=== PATIENT | female | born 2000 | race Caucasian/White ===

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

== ENCOUNTER 2020-02-14 18:26 | Emergency (ER) | payer SELFPAY ==
[2020-02-15 05:31] LABS: SARS-CoV-2 MS2 Positive; SARS-CoV-2 N Gene Negative; SARS-CoV-2 S Gene Negative; SARS-CoV-2 by NAA Not Detected (NotDetected); SARS-CoV-2 orf1ab Negative
== END 2020-02-14 18:52 | disposition home or self-care (01) ==
LOC: ERS 18:26
DX: R50.9 Fever, unspecified (principal); R52 Pain, unspecified; Z20.828 Contact with and (suspected) exposure to other viral communicable diseases; F41.9 Anxiety disorder, unspecified; F17.210 Nicotine dependence, cigarettes, uncomplicated
CPT/HCPCS: 87635; 99283; U0003

== ENCOUNTER 2020-06-20 17:48 | Emergency (ER) | payer OTHER, MEDICAID ==
[2020-06-20 18:25] LABS: #Basophils 0.1 thou/uL (0.0-0.2); #Eosinphils 0.1 thou/uL (0.0-0.7); #Lymphocytes 2.5 thou/uL (1.20-3.40); #Monocytes 0.6 thou/uL (0.11-0.59); #Neutrophils 6.5 thou/uL (1.40-6.50); %Basophils 0.7 % (0.0-1.0); %Eosinophils 0.7 % (0.0-10.0); %Lymphocytes 25.7 % (28.0-48.0); %Monocytes 5.8 % (0.0-4.0); %Neutrophils 67.1 % (31.0-61.0); Hemoglobin 12.8 g/dL (12.0-16.0); Mean Corpuscular HGB CONC 34.6 g/dL (32.0-36.0); Mean Platelet Volume 8.6 fL (7.4-10.4); Platelet Count 226 thou/uL (130-400); RBC Distribution Width 10.4 % (11.5-14.5); Red Blood Cell (RBC) Count 3.55 mill/uL (4.00-5.20); White Blood Cell (WBC) Count 9.6 thou/uL (4.8-10.8)
[2020-06-20 18:44] LABS: ALT (SGPT) 11 U/L (8-55); AST (SGOT) 13 U/L (5-34); Albumin 4.4 g/dL (3.5-5.0); Alkaline Phosphatase 49 U/L (40-100); Anion Gap 12 mmol/L (10-20); BUN (Urea Nitrogen) 13 mg/dL (7.0-18.7); Bilirubin, Total 0.4 mg/dL (0.2-1.2); Calc. Creatinine Clearance 0 mL/min (70-130); Calcium 8.9 mg/dL (7.8-10.44); Carbon Dioxide 23 mmol/L (22-29); Chloride 107 mmol/L (98-107); Globulin 3.1 g/dL (2.4-3.5); Glucose 98 mg/dL (70-105); Lipase 11 U/L (8-78); Potassium 3.4 mmol/L (3.5-5.1); Protein, Total 7.5 g/dL (6.0-8.3); Sodium 139 mmol/L (136-145)
[2020-06-20 19:43] LABS: Pregnancy Test - Urine (BHCG) Negative (Negative)
[2020-06-20 19:44] LABS: Bilirubin Negative (Negative); Blood, Urine 1+ (Negative); Clarity Clear (Clear); Glucose, Urine (Dipstick) Normal (Negative); Ketone, Urine Negative (Negative); Leukocyte 500 Leu/uL (Negative); Nitrite Negative (Negative); Protein, Urine (Dipstick) 10 mg/dL (Neg-Trace); Specific Gravity, Urine 1.028 (1.002-1.036); Urobilinogen Normal mg/dL (Less than 2)
[2020-06-20 19:45] LABS: Bacteria/HPF None Seen HPF (None Seen); WBC/HPF 21-50 HPF (0-3)
[2020-06-20 19:46] LABS: Pregu Control Background? CLEAR/WHITE (CLR/WHITE); Pregu Control Bar Appear? YES (CONTROL BAR); Specific Gravity 1.028 (1.002-1.036)
== END 2020-06-20 22:35 | disposition home or self-care (01) ==
LOC: ERS 17:48
DX: N39.0 Urinary tract infection, site not specified (principal)
CPT/HCPCS: 36415; 71045; 80053; 81003; 81015; 81025; 83690; 85025

== ENCOUNTER 2020-10-24 13:47 | Emergency (ER) | payer MEDICAID ==
[2020-10-24] MEDS ORDERED: Ondansetron ODT 4 MG TAB ONE (17:28)
== END 2020-10-24 17:42 | disposition home or self-care (01) ==
LOC: ERS 13:47
DX: R11.0 Nausea (principal); R10.9 Unspecified abdominal pain; R07.89 Other chest pain; R06.02 Shortness of breath; T37.3X5A Adverse effect of other antiprotozoal drugs, initial encounter
CPT/HCPCS: 71045; 93005; Q0162

== ENCOUNTER 2020-11-05 19:57 | Emergency (ER) | payer MEDICAID | END 2020-11-05 20:36 | disposition home or self-care (01) | LOC: ERS 19:57 | DX: N89.8 Other specified noninflammatory disorders of vagina (principal) | CPT/HCPCS: 99283 ==